=== PATIENT | female | born 1940 ===

== ENCOUNTER 2024-03-01 11:56 | Emergency (ER) | payer MEDICARE ==
[~2024-03-01] VITALS: Ht 170.2 cm; Wt 64.5 kg
[2024-03-01 12:00] VITALS: BP 123/78; PULSE 98; RESP 16; TEMP 98.5; O2SAT 98
== END 2024-03-01 14:01 | disposition left against medical advice (07) ==
LOC: ER 11:58
DX: M54.50 Low back pain, unspecified (principal); Z53.21 Procedure and treatment not carried out due to patient leaving prior to being seen by health care provider